=== PATIENT | female | born 1995 | race Caucasian/White ===

== ENCOUNTER 2021-02-18 10:59 | Emergency (ER) | payer OTHER ==
[~2021-02-18] VITALS: Ht 160 cm; Wt 67.0 kg
[2021-02-18] MEDS ORDERED: SERT-331 PO (11:16)
--- NOTE | 2021-02-18 11:17 | NUR ---
"I THINK I HAD TWO SEIZURES THIS MORNING." PATIENT REPORTS PASSING OUT 2X TIMES AND FRIEND STATES SHE WAS SHAKING, AND BOTH LASTED A "FEW SECONDS." WITNESSED SZ X2 THIS MORNING BY BOYFRIEND. BOYFRIEND REPORTS THAT HE HERD HER FALL IN THE RESTROOM AND BECAME ALTERED AFTER. THE SECOND SZ SHE WAS SITTING IN A CHAIR AND HER EYES ROLLED BACK AND STARTED SHAKING FOR A 1 MIN AND BECAME ALTERED AFTER. PT A&OX4 IN BED IN A GOWN WITH CONT SPO2M BP Q 30 MIN, SIDE RAILS UP X2 CALL LIGHT IN REACH.
--- NOTE | 2021-02-18 11:54 | NUR ---
URINE SENT TO LAB
[2021-02-18 11:56] LABS: BASOPHILS % (AUTO) 1 % (0-1); EOSINOPHILS % (AUTO) 3 % (1-7); LYMPHOCYTES % (AUTO) 19 % (22-44); MEAN CORPUSCULAR HEMOGLOBIN 30.7 pg (27.0-34.8); MEAN CORPUSCULAR HGB CONC 33.9 g/dL (32.4-35.8); MEAN PLATELET VOLUME 8.2 fL (7.4-10.4); MONOCYTES % (AUTO) 5 % (2-9); NEUTROPHILS % (AUTO) 72 % (42-75); PLATELET COUNT 268 x10^3/uL (130-400); RED BLOOD COUNT 4.43 x10^6/uL (3.82-5.3); RED CELL DISTRIBUTION WIDTH 15.9 % (9.6-15.2)
[2021-02-18 12:00] LABS: ALANINE AMINOTRANSFERASE 31 U/L (12-78); ALBUMIN 4.2 g/dL (3.4-5.0); ANION GAP 5 mmol/L (5-15); CALCIUM 8.8 mg/dL (8.5-10.1); CHLORIDE 109 mmol/L (98-107); CREATININE 0.81 mg/dL (0.55-1.02)
[2021-02-18] MEDS ORDERED: SODIUM CHLORIDE 0.9% 1,000ML IVBOLUS ONE (12:00)
[2021-02-18] MEDS ORDERED: SODIUM CHLORIDE FLUSH 10ML SYR IVF ONE (12:00)
[2021-02-18 12:02] LABS: ALKALINE PHOSPHATASE 58 U/L (45-117); BILIRUBIN,TOTAL 0.5 mg/dL (0.2-1.0); TOTAL PROTEIN 7.9 g/dL (6.4-8.2)
[2021-02-18 12:16] LABS: MD NO
[2021-02-18 12:18] LABS: MICROSCOPIC AUTO
[2021-02-18 12:26] LABS: AMPHETAMINE SCREEN, URINE Negative (Negative); BARBITURATE SCREEN, URINE Negative (Negative); BENZODIAZEPINE SCREEN, URINE Negative (Negative); CANNABINOID SCREEN, URINE Negative (Negative); COCAINE SCREEN, URINE Negative (Negative); METHADONE SCREEN, URINE Negative (Negative); OPIATE SCREEN, URINE Negative (Negative)
[2021-02-18 13:40] VITALS: BP 98/59
== END 2021-02-18 13:43 | disposition home or self-care (01) ==
LOC: ED 11:11
DX: S00.531A Contusion of lip, initial encounter (principal); I49.1 Atrial premature depolarization; R55 Syncope and collapse; R51.9 Headache, unspecified; X58.XXXA Exposure to other specified factors, initial encounter; Y93.89 Activity, other specified; Y92.89 Other specified places as the place of occurrence of the external cause; Y99.8 Other external cause status
CPT/HCPCS: 36415; 70450; 80053; 80307; 81001; 85025; 93005; 96360; 96361; 99285; J7030